=== PATIENT | male | born 1950 | race Caucasian/White ===

== ENCOUNTER 2018-09-10 10:02 | Inpatient (IN) | payer MEDICARE, MEDICAID | END 2018-09-25 12:30 | LOC: ER 10:02 → ORTHO 4S 09-12 17:45 → ED HOLD 12:05 → PCU 3S 14:20 | DX: A41.9 Sepsis, unspecified organism (principal); G92 Toxic encephalopathy; K76.7 Hepatorenal syndrome; E43 Unspecified severe protein-calorie malnutrition; R17 Unspecified jaundice; N17.9 Acute kidney failure, unspecified; F10.239 Alcohol dependence with withdrawal, unspecified; K70.31 Alcoholic cirrhosis of liver with ascites; K70.40 Alcoholic hepatic failure without coma; F10.10 Alcohol abuse, uncomplicated; R60.1 Generalized edema; Z86.718 Personal history of other venous thrombosis and embolism; K75.81 Nonalcoholic steatohepatitis (NASH) ==

== ENCOUNTER 2023-11-21 09:23 | Inpatient (IN) | payer MEDICARE, MEDICAID ==
[~2023-11-21] VITALS: Ht 177.8 cm; Wt 79.7 kg
[2023-11-21] VITALS (11 sets, daily range): BP systolic 102–124; BP diastolic 45–58; PULSE 62–69; RESP 10–18; TEMP 97.8–99.2; O2SAT 100
[~2023-11-21 09:23] MED LIST: APIX2.5T PO; LISI1TAB49 PO
[2023-11-21 10:49] LABS: MEAN CORPUSCULAR HEMOGLOBIN 16.3 PG (27.0-31.0); MEAN CORPUSCULAR HGB CONC 28.4 g/dL (33.0-36.5); MEAN CORPUSCULAR VOLUME 57.6 FL (78-98); MEAN PLATELET VOLUME 8.5 FL (7.4-10.4); PLATELET COUNT 257 X10'3 (140-440); RED BLOOD COUNT 3.28 X10'6 (4.70-6.10); RED CELL DISTRIBUTION WIDTH 21.1 % (11.5-14.5); WHITE BLOOD COUNT 5.8 X10'3 (4.5-11.0)
[2023-11-21 10:51] LABS: APTT 26 SECONDS (22-32); INR 1.1 INR; PROTHROMBIN TIME 11.3 SECONDS (9.0-12.0)
[2023-11-21 10:53] LABS: ALANINE AMINOTRANSFERASE 21 U/L (12-78); ALBUMIN 3.4 G/DL (3.4-5.0); ALKALINE PHOSPHATASE 56 IU/L (46-116); ANION GAP 12 (8-16); ASPARTATE AMINO TRANSFERASE 30 U/L (10-37); BILIRUBIN,TOTAL 0.5 MG/DL (0.1-1.0); BLOOD UREA NITROGEN 16 MG/DL (7-18); BUN/CREATININE RATIO 13.4 (10.0-20.0); CALCIUM 8.5 MG/DL (8.5-10.1); CHLORIDE 101 MMOL/L (99-107); CREATININE 1.19 MG/DL (0.60-1.10); GLUCOSE 105 MG/DL (70-104); HEMOGLOBIN 5.4 g/dl (14.0-17.9); SODIUM 137 MMOL/L (135-145); TOTAL CARBON DIOXIDE 24.3 MMOL/L (24-32); TOTAL PROTEIN 6.7 G/DL (6.4-8.2); eCRCL 56 ML/MIN; eGFR 60 ML/MIN
[2023-11-21 10:54] LABS: % IRON SATURATION 4 % (11-46); HEMATOCRIT 18.9 % (42.0-52.0); IRON 13 UG/DL (53-167); TOTAL IRON BINDING CAPACITY 323 UG/DL (259-388)
[2023-11-21 11:08] LABS: FERRITIN 4 NG/ML (26-388); POTASSIUM 3.3 MMOL/L (3.5-5.1)
[2023-11-21 11:15] LABS: TOTAL CELLS COUNTED 100
[2023-11-21 11:18] LABS: ANISOCYTOSIS 3+; ELLIPTOCYTES FEW; MICROCYTOSIS 3+; PLATELET ESTIMATE NORMAL
[2023-11-21 11:19] LABS: SCHISTOCYTES FEW
[2023-11-21 11:31] LABS: MAGNESIUM 1.8 MG/DL (1.5-2.4)
[2023-11-21] MEDS ORDERED: ALLO100T PO (12:19)
[2023-11-21] MEDS ORDERED: FURO40TA4 PO (12:19)
[2023-11-21] MEDS ORDERED: PROP10TA10 PO (12:19)
[2023-11-21] MEDS ORDERED: PANT40TA54 PO (12:19)
[2023-11-21] MEDS ORDERED: LIPA1CAP21 (12:19)
[2023-11-21] MEDS ORDERED: SPIR25TA5 (12:19)
[2023-11-21] MEDS ORDERED: HYDR-3964 (12:19)
[2023-11-21] MEDS ORDERED: pantoprazole 40mg IV 80 MG in normal saline 100ml IV soln 100 ML IV ONE (14:05)
[2023-11-21] MEDS ORDERED: ondansetron/PF 4mg/2ml inj IV PRN (14:10)
[2023-11-21] MEDS ORDERED: magnesium 2GM in 50ml NS 50 ML IV PRN (14:10)
[2023-11-21] MEDS ORDERED: magnesium hydroxide 30ml (MOM) UD suspension PO PRN (14:10)
[2023-11-21] MEDS ORDERED: magnesium Cl slow-release 64mg tablet PO PRN (14:10)
[2023-11-21] MEDS ORDERED: potassium Cl 20 mEq SR tablet PO PRN ×2 (14:10)
[2023-11-21] MEDS ORDERED: mag hydrox/Alum hydrox/simeth 30ml oral suspension PO PRN (14:10)
[2023-11-21] MEDS ORDERED: magnesium 4gm in 100ml NS 100 ML IV PRN (14:10)
[2023-11-21] MEDS: pantoprazole 40 MG vial IV ONE (14:23)
[2023-11-21] MEDS: normal saline 1000ml 1,000 ML IV SCH (14:31)
[2023-11-21] MEDS: CefTRIAXone/D5W-Rocephin 1gm 50 ML IV SCH (14:44)
[2023-11-21] MEDS: octreotide 100mcg/1 ml ampule IV ONE (15:14)
[2023-11-21] MEDS: octreotide inj. 1,250 MCG in normal saline 250ml IV soln 243.75 ML IV SCH (15:16)
[2023-11-21] MEDS ORDERED: ALPR0.255 PO (15:43)
[2023-11-21] MEDS ORDERED: pneumococcal 23-VAL P-sac vacc 25 mcg/0.5ml vial IMVAC ONE (16:00)
[2023-11-21] MEDS: pantoprazole 40MG/NS 100ML BAG 100 ML IV SCH (17:57)
[2023-11-21] MEDS: K and/or MAG REPLACEMENT MC SCH (20:00)
[2023-11-21 22:26] LABS: ABSOLUTE RETICS # 116.3 X10'3 uL (32.5-133.0); RED BLOOD COUNT 3.4 X10'6 (4.30-5.90); RETICULOCYTE % (AUTO) 3.4 % (0.5-2.3)
[2023-11-21 22:49] LABS: HEMATOCRIT 22.6 % (42.0-52.0); MEAN CORPUSCULAR HEMOGLOBIN 19.5 PG (27.0-31.0); MEAN CORPUSCULAR HGB CONC 30.5 g/dL (33.0-36.5); MEAN CORPUSCULAR VOLUME 63.8 FL (78-98); MEAN PLATELET VOLUME 8.8 FL (7.4-10.4); PLATELET COUNT 226 X10'3 (140-440); RED BLOOD COUNT 3.55 X10'6 (4.70-6.10); RED CELL DISTRIBUTION WIDTH 28.4 % (11.5-14.5)
[2023-11-21 22:50] LABS: ALBUMIN 2.9 G/DL (3.4-5.0); ANION GAP 5 (8-16); BLOOD UREA NITROGEN 12 MG/DL (7-18); BUN/CREATININE RATIO 12.2 (10.0-20.0); CALCIUM 7.9 MG/DL (8.5-10.1); CHLORIDE 105 MMOL/L (99-107); CREATININE 0.98 MG/DL (0.60-1.10); GLUCOSE 96 MG/DL (70-104); POTASSIUM 3.2 MMOL/L (3.5-5.1); SODIUM 138 MMOL/L (135-145); TOTAL CARBON DIOXIDE 28.2 MMOL/L (24-32); eCRCL 68 ML/MIN; eGFR 75 ML/MIN
[2023-11-21 23:17] LABS: HEMOGLOBIN 6.9 g/dl (14.0-17.9)
[2023-11-22] VITALS (17 sets, daily range): BP systolic 104–137; BP diastolic 45–68; PULSE 55–68; RESP 11–18; TEMP 97.2–99.4; O2SAT 95–100
[2023-11-22] MEDS: potassium Cl 40MEQ/1/2NS 520ml 520 ML IV PRN (04:00)
[2023-11-22 07:29] LABS: BASOPHILS % (AUTO) 0.5 % (0-1); EOSINOPHILS # (AUTO) 0.6 X10'3 (0-0.9); EOSINOPHILS % (AUTO) 9.6 % (0-6); HEMATOCRIT 25.9 % (42.0-52.0); HEMOGLOBIN 8.1 g/dl (14.0-17.9); LYMPHOCYTES # (AUTO) 0.6 X10'3 (1.1-4.8); LYMPHOCYTES % (AUTO) 10.4 % (21-51); MEAN CORPUSCULAR HEMOGLOBIN 20.9 PG (27.0-31.0); MEAN CORPUSCULAR HGB CONC 31.4 g/dL (33.0-36.5); MEAN CORPUSCULAR VOLUME 66.6 FL (78-98); MONOCYTES # (AUTO) 0.6 X10'3 (0-0.9); MONOCYTES % (AUTO) 10.4 % (2-12); NEUTROPHILS # (AUTO) 4.2 X10'3 (1.8-7.7); NEUTROPHILS % (AUTO) 69.1 % (42-75); PLATELET COUNT 207 X10'3 (140-440); RED BLOOD COUNT 3.89 X10'6 (4.70-6.10); RED CELL DISTRIBUTION WIDTH 31.4 % (11.5-14.5); WHITE BLOOD COUNT 6.1 X10'3 (4.5-11.0)
[2023-11-22 07:49] LABS: ALBUMIN 2.9 G/DL (3.4-5.0); ANION GAP 9 (8-16); BLOOD UREA NITROGEN 11 MG/DL (7-18); BUN/CREATININE RATIO 11.2 (10.0-20.0); CALCIUM 7.7 MG/DL (8.5-10.1); CHLORIDE 105 MMOL/L (99-107); CREATININE 0.98 MG/DL (0.60-1.10); GLUCOSE 89 MG/DL (70-104); POTASSIUM 3.6 MMOL/L (3.5-5.1); SODIUM 139 MMOL/L (135-145); TOTAL CARBON DIOXIDE 25.4 MMOL/L (24-32); eCRCL 68 ML/MIN; eGFR 75 ML/MIN
[2023-11-22 08:31] LABS: PLATELET ESTIMATE NORMAL
[2023-11-22 08:32] LABS: ANISOCYTOSIS 3+; GIANT PLATELET FEW; HYPOCHROMASIA 2+; LARGE PLATELETS FEW; MICROCYTOSIS 2+
[2023-11-22 08:33] LABS: ELLIPTOCYTES FEW; POIKILOCYTOSIS FEW; POLYCHROMASIA FEW
[2023-11-22] MEDS ORDERED: MIDAZolam 1 MG/ML 5ML VIAL ONE (17:25)
[2023-11-22] MEDS ORDERED: fentaNYL/PF 50MCG/1 ML 2ML syringe ONE (17:25)
[2023-11-22] MEDS ORDERED: LIDOcaine 2% Viscous 15ml cup ONE (17:26)
[2023-11-23] MEDS ORDERED: scopolamine 1MG/72H patch 1 PATCH PATCH.TD.3 TD SCH (01:25)
[2023-11-23 06:00] VITALS: BP 124/58; PULSE 58; RESP 12; TEMP 97.5; O2SAT 96
[2023-11-23 07:26] LABS: BASOPHILS # (AUTO) 0.1 X10'3 (0-0.2); EOSINOPHILS # (AUTO) 0.5 X10'3 (0-0.9); EOSINOPHILS % (AUTO) 9.6 % (0-6); HEMATOCRIT 26.4 % (42.0-52.0); LYMPHOCYTES # (AUTO) 0.6 X10'3 (1.1-4.8); MEAN CORPUSCULAR HEMOGLOBIN 20.3 PG (27.0-31.0); MEAN CORPUSCULAR HGB CONC 30.2 g/dL (33.0-36.5); MEAN CORPUSCULAR VOLUME 67.4 FL (78-98); MEAN PLATELET VOLUME 9.3 FL (7.4-10.4); MONOCYTES # (AUTO) 0.7 X10'3 (0-0.9); MONOCYTES % (AUTO) 12.5 % (2-12); NEUTROPHILS # (AUTO) 3.8 X10'3 (1.8-7.7); NEUTROPHILS % (AUTO) 66.9 % (42-75); PLATELET COUNT 239 X10'3 (140-440); RED BLOOD COUNT 3.92 X10'6 (4.70-6.10); RED CELL DISTRIBUTION WIDTH 30.6 % (11.5-14.5); WHITE BLOOD COUNT 5.7 X10'3 (4.5-11.0)
[2023-11-23 07:49] LABS: ALBUMIN 2.7 G/DL (3.4-5.0); ANION GAP 7 (8-16); BLOOD UREA NITROGEN 9 MG/DL (7-18); BUN/CREATININE RATIO 9.9 (10.0-20.0); CALCIUM 7.7 MG/DL (8.5-10.1); CHLORIDE 108 MMOL/L (99-107); CREATININE 0.91 MG/DL (0.60-1.10); GLUCOSE 82 MG/DL (70-104); POTASSIUM 3.9 MMOL/L (3.5-5.1); SODIUM 140 MMOL/L (135-145); TOTAL CARBON DIOXIDE 24.6 MMOL/L (24-32); eCRCL 74 ML/MIN; eGFR 81 ML/MIN
[2023-11-23 08:00] VITALS: RESP 12; O2SAT 96
[2023-11-23] MEDS ORDERED: octreotide inj. 500 MCG in normal saline 100ml IV soln 97.5 ML IV SCH (10:31)
[2023-11-23 11:00] VITALS: BP 116/56; PULSE 62; RESP 16; TEMP 99.6; O2SAT 100
[2023-11-23] MEDS ORDERED: LACT1CAP60 PO (12:26)
[2023-11-23] MEDS ORDERED: PROP10TA10 PO (12:26)
[2023-11-23] MEDS ORDERED: SPIR25TA5 PO (12:26)
[2023-11-23] MEDS ORDERED: PANT40TA54 PO (12:26)
[2023-11-23] MEDS ORDERED: LISI1TAB49 PO (12:26)
[2023-11-23] MEDS ORDERED: FURO40TA4 PO (12:26)
== END 2023-11-23 15:33 | disposition home or self-care (01) | DRG 812 ==
LOC: ER 09:24 → ED HOLD 12:39 → PCU 3S 16:21
PROVIDERS: ADMIT Family Medicine; ATTEND Family Medicine
PROC: 30233N1 Transfusion of Nonautologous Red Blood Cells into Peripheral Vein, Percutaneous Approach (ICD-10-PCS; principal; 2023-11-21)
PROC: 0DB78ZX Excision of Stomach, Pylorus, Via Natural or Artificial Opening Endoscopic, Diagnostic (ICD-10-PCS; 2023-11-22)
DX: D64.89 Other specified anemias (principal); K92.1 Melena; I82.593 Chronic embolism and thrombosis of other specified deep vein of lower extremity, bilateral; K72.90 Hepatic failure, unspecified without coma; K70.30 Alcoholic cirrhosis of liver without ascites; K63.9 Disease of intestine, unspecified; I10 Essential (primary) hypertension; Z88.0 Allergy status to penicillin; Z91.018 Allergy to other foods; Z79.01 Long term (current) use of anticoagulants; Z79.899 Other long term (current) drug therapy; K29.70 Gastritis, unspecified, without bleeding
CPT/HCPCS: 36415; 36430; 43239; 71045; 76700; 80048; 80053; 82728; 83540; 83550; 83735; 84466; 85007; 85008; 85025; 85027; 85610; 85730; 86885; 86900; 86901; 86920; 87081; 90732; 93005; 93970; 99152; 99285; A4620; A6258; C9113; G0378; J0696; J2250; J2354; J3010; J3480; J7030; J7040; J7050; P9016

== ENCOUNTER 2024-01-14 10:45 | Emergency (ER) | payer MEDICARE, MEDICAID ==
[~2024-01-14] VITALS: Ht 177.8 cm; Wt 77.7 kg
[~2024-01-14 10:45] MED LIST changes: +ALLO100T PO; +ALPR0.255 PO; +FURO40TA4 PO; +HYDR-3964; +LACT1CAP60 PO; +LIPA1CAP21; +PANT40TA54 PO; +PROP10TA10 PO; +SPIR25TA5 PO
[2024-01-14 11:15] LABS: BASOPHILS % (AUTO) 0.6 % (0-1); EOSINOPHILS # (AUTO) 0.3 X10'3 (0-0.9); EOSINOPHILS % (AUTO) 5.1 % (0-6); HEMATOCRIT 30.4 % (42.0-52.0); HEMOGLOBIN 9.3 g/dl (14.0-17.9); LYMPHOCYTES # (AUTO) 0.8 X10'3 (1.1-4.8); MEAN CORPUSCULAR HEMOGLOBIN 20.6 PG (27.0-31.0); MEAN CORPUSCULAR HGB CONC 30.4 g/dL (33.0-36.5); MEAN CORPUSCULAR VOLUME 67.7 FL (78-98); MEAN PLATELET VOLUME 8.7 FL (7.4-10.4); MONOCYTES # (AUTO) 0.5 X10'3 (0-0.9); MONOCYTES % (AUTO) 9.7 % (2-12); NEUTROPHILS # (AUTO) 3.9 X10'3 (1.8-7.7); NEUTROPHILS % (AUTO) 69.6 % (42-75); PLATELET COUNT 287 X10'3 (140-440); RED BLOOD COUNT 4.49 X10'6 (4.70-6.10); RED CELL DISTRIBUTION WIDTH 23.9 % (11.5-14.5); WHITE BLOOD COUNT 5.6 X10'3 (4.5-11.0)
[2024-01-14 11:22] LABS: ALANINE AMINOTRANSFERASE 27 U/L (12-78); ALBUMIN 3.8 G/DL (3.4-5.0); ALBUMIN/GLOBULIN RATIO 1.2 (1.1-1.5); ALKALINE PHOSPHATASE 65 IU/L (46-116); ANION GAP 6 (8-16); ASPARTATE AMINO TRANSFERASE 12 U/L (10-37); BILIRUBIN,TOTAL 0.7 MG/DL (0.1-1.0); BLOOD UREA NITROGEN 19 MG/DL (7-18); BUN/CREATININE RATIO 15.8 (10.0-20.0); CALCIUM 8.6 MG/DL (8.5-10.1); CHLORIDE 103 MMOL/L (99-107); GLUCOSE 144 MG/DL (70-104); POTASSIUM 3.4 MMOL/L (3.5-5.1); SODIUM 140 MMOL/L (135-145); TOTAL CARBON DIOXIDE 30.7 MMOL/L (24-32); TOTAL PROTEIN 7.1 G/DL (6.4-8.2); eCRCL 56 ML/MIN; eGFR 59 ML/MIN
[2024-01-14 11:30] LABS: PRO BRAIN NATRIURETIC PEPTIDE 238 PG/ML (0-125)
[2024-01-14 12:45] LABS: ANISOCYTOSIS 3+; MICROCYTOSIS 2+; PLATELET ESTIMATE NORMAL
[2024-01-14 12:46] LABS: ELLIPTOCYTES 1+; HYPOCHROMASIA 1+
[2024-01-14 12:48] LABS: SCHISTOCYTES FEW
[2024-01-14] MEDS: potassium Cl 20 mEq SR tablet PO STA (13:40)
[2024-01-14 13:44] VITALS: BP 117/67; PULSE 70; RESP 19; TEMP 98.7; O2SAT 98
== END 2024-01-14 13:46 | disposition home or self-care (01) ==
LOC: ER 10:46
DX: R07.89 Other chest pain (principal); E87.6 Hypokalemia; I10 Essential (primary) hypertension; F12.90 Cannabis use, unspecified, uncomplicated; Z88.0 Allergy status to penicillin; Z91.018 Allergy to other foods; Z91.010 Allergy to peanuts; Z79.899 Other long term (current) drug therapy
CPT/HCPCS: 36415; 71045; 80053; 83880; 84484; 85008; 85025; 93005; 99285

== ENCOUNTER 2024-07-22 10:15 | Emergency (ER) | payer MEDICARE, MEDICAID ==
[~2024-07-22] VITALS: Ht 177.8 cm; Wt 79.5 kg
[2024-07-22 10:26] VITALS: BP 168/72; PULSE 79; RESP 18; TEMP 97.8; O2SAT 100
[2024-07-22 11:34] LABS: MEAN PLATELET VOLUME 8.5 FL (7.4-10.4); PLATELET COUNT 260 X10'3 (140-440); WHITE BLOOD COUNT 5.3 X10'3 (4.5-11.0)
[2024-07-22 11:41] LABS: APTT 25 SECONDS (22-32); INR 1.1 INR; PROTHROMBIN TIME 11.2 SECONDS (9.0-12.0)
[2024-07-22 11:52] LABS: ALANINE AMINOTRANSFERASE 18 U/L (12-78); ALBUMIN 3.8 G/DL (3.4-5.0); ALBUMIN/GLOBULIN RATIO 1.1 (1.1-1.5); ALKALINE PHOSPHATASE 69 IU/L (46-116); ANION GAP 5 (8-16); ASPARTATE AMINO TRANSFERASE 14 U/L (10-37); BILIRUBIN,TOTAL 0.5 MG/DL (0.1-1.0); BLOOD UREA NITROGEN 18 MG/DL (7-18); BUN/CREATININE RATIO 16.4 (10.0-20.0); CALCIUM 8.4 MG/DL (8.5-10.1); CHLORIDE 106 MMOL/L (99-107); GLUCOSE 102 MG/DL (70-104); POTASSIUM 4.4 MMOL/L (3.5-5.1); SODIUM 142 MMOL/L (135-145); TOTAL CARBON DIOXIDE 30.6 MMOL/L (24-32); TOTAL PROTEIN 7.2 G/DL (6.4-8.2); eCRCL 60 ML/MIN; eGFR 65 ML/MIN
[2024-07-22 12:21] LABS: RED BLOOD COUNT 4.23 X10'6 (4.70-6.10)
[2024-07-22 12:22] LABS: HEMATOCRIT 25.2 % (42.0-52.0); MEAN CORPUSCULAR HEMOGLOBIN 18.8 PG (27.0-31.0); MEAN CORPUSCULAR HGB CONC 31.5 g/dL (33.0-36.5); MEAN CORPUSCULAR VOLUME 59.7 FL (78-98); RED CELL DISTRIBUTION WIDTH 19.7 % (11.5-14.5)
[2024-07-22 12:30] LABS: ANISOCYTOSIS 3+; MICROCYTOSIS 2+; PLATELET ESTIMATE NORMAL; TOTAL CELLS COUNTED 100
[2024-07-22 12:31] LABS: ELLIPTOCYTES FEW; HYPOCHROMASIA 1+; POLYCHROMASIA FEW
== END 2024-07-22 13:03 | disposition home or self-care (01) ==
LOC: ER 10:16
DX: D64.9 Anemia, unspecified (principal); R79.89 Other specified abnormal findings of blood chemistry; I10 Essential (primary) hypertension; F12.90 Cannabis use, unspecified, uncomplicated; F10.90 Alcohol use, unspecified, uncomplicated; Z86.718 Personal history of other venous thrombosis and embolism; Z88.0 Allergy status to penicillin
CPT/HCPCS: 36415; 80053; 85007; 85025; 85610; 85730; 86885; 86900; 86901; 99283